=== PATIENT | male | born 1970 | race Caucasian/White ===

== ENCOUNTER 2020-05-13 10:25 | Observation (INO) | payer BC ==
[~2020-05-13] VITALS: Ht 182.9 cm; Wt 86.8 kg
[~2020-05-13 10:25] MED LIST: BACITRACIN 50,000 UNIT ONE; BUPIVACAINE/EPI 0.5% 1:200K ONE; VANCOMYCIN 1,000 MG ONE
[2020-05-13] MEDS ORDERED: LACTATED RINGERS 1,000 ML IV SCH ×2 (10:40→10:46)
[2020-05-13] MEDS ORDERED: GABAPENTIN PO (10:53)
[2020-05-13] MEDS ORDERED: GLYB5TAB3 PO (10:53)
[2020-05-13] MEDS ORDERED: KETO10TA PO (10:53)
[2020-05-13] MEDS ORDERED: METF500T17 PO (10:53)
[2020-05-13] MEDS ORDERED: CHLORHEXIDINE 15 ML UDC MM ONE (11:00)
[2020-05-13] MEDS ORDERED: PLEASE ENTER ALLERGIES MC SCH (11:00)
[2020-05-13] MEDS ORDERED: PLEASE ENTER HEIGHT AND WEIGHT MC SCH (11:00)
[2020-05-13 11:02] VITALS: BP 149/97
[2020-05-13 11:03] LABS: MICROSCOPIC NOT IND
[2020-05-13] MEDS ORDERED: CHLORHEXIDINE 15 ML UDC ONE (11:05)
[2020-05-13 11:25] LABS: BASOPHILS # (AUTO) 0.02 x10^3/uL (0-0.1); BASOPHILS % (AUTO) 0 % (0-1); EOSINOPHILS # (AUTO) 0.25 x10^3/uL (0-0.4); EOSINOPHILS % (AUTO) 4 % (1-7); LYMPHOCYTES # (AUTO) 1.93 x10^3/uL (1-3.4); LYMPHOCYTES % (AUTO) 27 % (22-44); MD NO; MEAN CORPUSCULAR HEMOGLOBIN 30.9 pg (27.5-34.5); MEAN CORPUSCULAR HGB CONC 34.1 g/dL (33.2-36.2); MEAN CORPUSCULAR VOLUME 90.7 fL (81-97); MEAN PLATELET VOLUME 9.3 fL (7.4-10.4); MONOCYTES % (AUTO) 6 % (2-9); NEUTROPHILS # (AUTO) 4.51 x10^3/uL (1.8-6.8); NEUTROPHILS % (AUTO) 64 % (42-75); PLATELET COUNT 235 x10^3/uL (130-400); RED BLOOD COUNT 5.21 x10^6/uL (4.38-5.82)
[2020-05-13 11:36] LABS: ANION GAP 7 mmol/L (5-15); CALCIUM 8.6 mg/dL (8.5-10.1); CHLORIDE 110 mmol/L (98-107); CREATININE 0.83 mg/dL (0.7-1.3)
[2020-05-13 11:38] LABS: INTERNATIONAL NORMALIZED RATIO 1.06 (0.93-1.1); PROTHROMBIN TIME 10.9 Seconds (9.6-11.5)
[2020-05-13] MEDS ORDERED: FENTANYL PF 250 MCG/5ML ONE (12:25)
[2020-05-13] MEDS ORDERED: MIDAZOLAM 1 MG/ML, 2ML ONE (12:25)
[2020-05-13] MEDS ORDERED: DEXAMETHASONE 4 MG/ML, 1ML ONE ×2 (13:30)
[2020-05-13] MEDS ORDERED: CEFAZOLIN 1,000 MG ONE ×3 (13:32)
[2020-05-13] MEDS ORDERED: FENTANYL PF 100 MCG/2ML IV PRN (14:00)
[2020-05-13] MEDS ORDERED: DIAZEPAM 5 MG/ML, 2ML IVPush PRN (14:00)
[2020-05-13] MEDS ORDERED: MEPERIDINE/PF 25MG/0.5ML IVPush PRN (14:00)
[2020-05-13] MEDS ORDERED: PROMETHAZINE 25 MG/ML, 1ML IVPush PRN (14:00)
[2020-05-13] MEDS ORDERED: OXYcodone 5 MG/5 ML ORAL.SOL UDC PO PRN (14:00)
[2020-05-13] MEDS ORDERED: LABETALOL 5MG/ML, 20ML IV PRN (14:00)
[2020-05-13] MEDS ORDERED: hydrALAzine 20 MG/ML, 1ML IV PRN (14:00)
[2020-05-13] MEDS ORDERED: ONDANSETRON 2MG/ML, 2ML ONE (14:00)
[2020-05-13] MEDS ORDERED: HYDROmorphone 1 MG/ML, 1ML INJ IVPush PRN ×2 (14:00→14:30)
[2020-05-13] MEDS ORDERED: METHOCARBAMOL 1,000 MG in DEXTROSE 5% 100 ML IV PRN (14:00)
[2020-05-13] MEDS ORDERED: LORazepam 2 MG/ML, 1ML IVPush PRN (14:00)
[2020-05-13] MEDS ORDERED: ONDANSETRON 2MG/ML, 2ML IVPush PRN ×2 (14:00→14:30)
[2020-05-13] MEDS ORDERED: PROPOFOL 10 MG/ML, 20ML ONE (14:00)
[2020-05-13] MEDS ORDERED: ROCURONIUM 10MG/ML,5ML ONE (14:00)
[2020-05-13] MEDS ORDERED: ACETAMINOPHEN 325 MG TABLET PO PRN ×2 (14:00→14:30)
[2020-05-13] MEDS ORDERED: METHOCARBAMOL 1,000 MG in DEXTROSE 5% 100 ML IV ONE (14:30)
[2020-05-13] MEDS ORDERED: HYDROcodone/APAP 5/325 TABLET PO PRN (14:30)
[2020-05-13] MEDS ORDERED: DIPHENHYDRAMINE 50 MG/ML, 1ML IVPush PRN (14:30)
[2020-05-13] MEDS ORDERED: METHOCARBAMOL 750 MG TABLET PO PRN (14:30)
[2020-05-13] MEDS ORDERED: SENNA/DOCUSATE TABLET PO PRN (14:30)
[2020-05-13] MEDS ORDERED: BISACODYL 10 MG SUPP PR PRN (14:30)
[2020-05-13] MEDS ORDERED: HYDROcodone/APAP 10/325 MG TABLET PO PRN (14:30)
[2020-05-13] MEDS ORDERED: PROMETHAZINE 25 MG/ML, 1ML IM PRN (14:30)
[2020-05-13] MEDS ORDERED: MAGNESIUM HYDROXIDE 8%, 30ML UDC PO PRN (14:30)
[2020-05-13] MEDS ORDERED: PHARMACY MAY ADJ FOR RENAL FX MC PRN (14:30)
[2020-05-13] MEDS ORDERED: ACETAMINOPHEN 650 MG/20.3 ML UDC ONE (15:14)
[2020-05-13] MEDS ORDERED: OXYcodone 5 MG/5 ML ORAL.SOL UDC ONE (15:14)
[2020-05-13] MEDS: GABAPENTIN 300 MG CAPSULE PO SCH ×2 (16:00→21:25)
[2020-05-13] MEDS: OXYcodone/APAP 5/325MG TABLET PO PRN ×2 (19:19→23:22)
[2020-05-13] MEDS: NS + 20MEQ KCL 1,000 ML IV SCH (19:30)
[2020-05-13] MEDS: SODIUM CHLORIDE FLUSH 10ML SYR IVF SCH (21:00)
[2020-05-13] MEDS ORDERED: ZOLPIDEM 5MG TABLET PO PRN (21:00)
[2020-05-13 21:05] VITALS: BP 132/84
[2020-05-13] MEDS: metFORMIN 500 MG TABLET PO SCH (21:25)
[2020-05-13] MEDS: GlyBURIDE 5 MG TABLET PO SCH (21:26)
[2020-05-13] MEDS: CEFAZOLIN PMX 1GM/50ML 50 ML IVPB SCH (21:27)
[2020-05-13 23:31] VITALS: BP 148/97
[2020-05-14 03:50] VITALS: BP 130/84
[2020-05-14] MEDS: NS + 20MEQ KCL 1,000 ML IV SCH (04:53)
[2020-05-14] MEDS: OXYcodone/APAP 5/325MG TABLET PO PRN ×2 (04:59→10:39)
[2020-05-14] MEDS: GABAPENTIN 300 MG CAPSULE PO SCH ×2 (04:59→11:00)
[2020-05-14] MEDS: CEFAZOLIN PMX 1GM/50ML 50 ML IVPB SCH (04:59)
[2020-05-14 07:20] VITALS: BP 123/83
[2020-05-14] MEDS: metFORMIN 500 MG TABLET PO SCH (07:57)
[2020-05-14] MEDS: GlyBURIDE 5 MG TABLET PO SCH (07:57)
[2020-05-14] MEDS: SODIUM CHLORIDE FLUSH 10ML SYR IVF SCH (07:57)
[2020-05-14] MEDS ORDERED: OXYC-302 PO (10:33)
[2020-05-14] MEDS ORDERED: METH750T87 PO (10:33)
== END 2020-05-14 11:15 | disposition home or self-care (01) ==
LOC: OUT 10:25 → 4NE 14:31 → UNDOADMOB 23:40 → 4NE 23:40 → DCLOUNGE 05-14 11:08 → 4NE 05-14 11:08 → UNDODISOB 05-14 11:15
PROVIDERS: ADMIT Neurological Surgery; ATTEND Neurological Surgery
DX: M51.16 Intervertebral disc disorders with radiculopathy, lumbar region (principal); Z20.828 Contact with and (suspected) exposure to other viral communicable diseases; M48.061 Spinal stenosis, lumbar region without neurogenic claudication; Z79.899 Other long term (current) drug therapy
CPT/HCPCS: 63056; 71045; 72100; 80048; 81003; 82962; 85025; 85610; 85730; 87635; 93005; 96361; 96365; 96366; 97161; G0378; J0690; J1100; J2250; J2405; J2704; J2800; J3010; J3370; J3480; J7120